=== PATIENT | female | born 1955 | race African-American/Black ===

== ENCOUNTER 2021-05-03 18:17 | Emergency (ER) | payer BC, MEDICAID ==
[~2021-05-03] VITALS: Ht 154.9 cm; Wt 61.0 kg
[2021-05-03] MEDS ORDERED: HYDR25TA PO (18:24)
[2021-05-03 21:25] VITALS: BP 133/71
== END 2021-05-03 21:25 | disposition home or self-care (01) ==
LOC: ER 18:17
DX: S93.401A Sprain of unspecified ligament of right ankle, initial encounter (principal); I10 Essential (primary) hypertension; Z88.0 Allergy status to penicillin; W18.30XA Fall on same level, unspecified, initial encounter; Y93.89 Activity, other specified; Y92.89 Other specified places as the place of occurrence of the external cause; Y99.8 Other external cause status
CPT/HCPCS: 29515; 73610; 99283